=== PATIENT | male | born 1975 | race Caucasian/White ===

== ENCOUNTER 2016-10-05 14:10 | Emergency (ER) | payer BC ==
[2016-10-05] MEDS ORDERED: Nitroglycerin 0.4 MG Tab.SL SL ONE (15:09)
[2016-10-05 16:18] VITALS: BP 130/67
--- NOTE | 2016-10-06 10:20 | CR ---
INDICATION: Chest pain. CHEST: PA and lateral views of the chest 10/05/2016. No comparisons. Overlying snaps are noted. Heart, mediastinum, and bony thorax were unremarkable. An active infiltrate or effusion was not identified. IMPRESSION: No active disease. MTDD
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
== END 2016-10-05 16:15 | disposition home or self-care (01) ==
LOC: FB.ED 14:10
DX: R07.9 Chest pain, unspecified (principal); I10 Essential (primary) hypertension; K21.9 Gastro-esophageal reflux disease without esophagitis; Z79.899 Other long term (current) drug therapy; Z98.890 Other specified postprocedural states
CPT/HCPCS: 36415; 71020; 80047; 84484; 85025; 85379; 93005; 99285; A9270